=== PATIENT | female | born 1960 | race Two or more races ===

== ENCOUNTER 2020-01-25 16:22 | Emergency (ER) | payer MEDICAID ==
[~2020-01-25] VITALS: Ht 167.6 cm; Wt 63.5 kg
[2020-01-25 16:30] VITALS: BP 163/99
--- NOTE | 2020-01-25 17:00 | NUR ---
ED Nurse Note: Patient ambulated to ER c/o right eye irritation, at 11 in the morning. Patient reports wearing contact lense. Patient AAO x4, VSS at this time.
--- NOTE | 2020-01-25 17:45 | NUR ---
ED Nurse Note: Alex Lens irrigation of the right eye was performed by [place], patient tolerated procedue well.
[2020-01-25] MEDS ORDERED: Fluorescein Strips RIGHT EYE ONE (18:00)
[2020-01-25] MEDS ORDERED: Tetracaine 0.5% Opth 4ml Soln RIGHT EYE ONE (18:00)
--- NOTE | 2020-01-25 18:24 | Emergency Room Report ---
History of Present Illness General Chief Complaint: Eye Problems Source: Patient Present Illness HPI The patient states that earlier this morning she noted some burning and pain in her right eye. She states she was at work this a.m. when she noticed these symptoms. She states that she did remove her contact lenses. She states that since that time her eye has been burning and irritated and there has been yellow discharge. She has kept her eye closed for comfort. She denies eye injury or trauma. She denies deep eye pain or headache. She has no other complaints. Allergies: Coded Allergies: No Known Allergies (Unverified , 01/25/20) COVID-19 Screening Contact w/high risk pt: No Experienced COVID-19 symptoms?: No COVID-19 Testing performed SEO MANAGER: No Patient History Past Medical History: none, see triage record Social History: Denies: smoking, alcohol use, drug use Reviewed Nursing Documentation: PMH: Agreed; PSxH: Agreed Nursing Documentation-PMH Past Medical History: No Stated History Review of Systems All Other Systems: negative except mentioned in HPI Physical Exam Vital Signs Date Time Temp Pulse Resp B/P (MAP) Pulse Ox O2 Delivery O2 Flow Rate FiO2 01/25/20 16:24 97.9 78 16 163/99 (120) 100 Room Air Sp02 EP Interpretation: reviewed, normal General Appearance: no apparent distress, alert, GCS 15, non-toxic Head: normocephalic, atraumatic Eyes: right eye other - Fluorescin uptake in circular pattern over middle of visual field. 0.5x0.5 ENT: hearing grossly normal, normal pharynx, no angioedema, normal voice Neck: full range of motion, supple/symm/no masses Respiratory: chest non-tender, lungs clear, normal breath sounds, no respiratory distress, no retraction, no accessory muscle use, speaking full sentences Rectal: deferred Musculoskeletal: back normal, normal range of motion, gait/station normal, non- tender Neurologic: alert, motor strength/tone normal, oriented x3, sensory intact, responsive, speech normal Psychiatric: judgement/insight normal, memory normal, mood/affect normal, no suicidal/homicidal ideation Skin: no rash, normal color Medical Decision Making Diagnostic Impression: Primary Impression: Keratitis Additional Impressions: Acute bacterial conjunctivitis Corneal abrasion due to contact lens ER Course This patient has findings on exam concerning for a corneal abrasion with a bacterial conjunctivitis and keratitis. The patient's right eye was irrigated with a Alex lens and 500 cc of normal saline. The patient was given a list of the local optometry clinics and instructed to go to the optometry clinic immediately upon discharge or within the next 24 hours. The patient was educated not to use contact lenses at all until cleared by an bag filler machine operator or showroom manager. I will place the patient on Ciprodex. I impressed upon the patient the importance of very close follow-up with an recruitment specialist as she could lose vision in this eye. She indicated understanding and intention to do so. Last Vital Signs Date Time Temp Pulse Resp B/P (MAP) Pulse Ox O2 Delivery O2 Flow Rate FiO2 01/25/20 16:30 97.9 68 16 163/99 100 Room Air Status: improved Disposition: HOME, SELF-CARE Condition: Improved Referrals: NON PHYSICIAN (PCP) Patient Instructions: Bacterial Conjunctivitis, [id number] Kamille Herman DO Jan 25, 2020 18:24
[2020-01-25] MEDS ORDERED: VIGAMOX1 DROP RIGHT EYE (18:50)
[2020-01-25 18:55] VITALS: BP 163/99
--- NOTE | 2020-01-25 18:55 | NUR ---
ED Nurse Note: Pt cleared by health care Provider for discharge. DC instructions/prescription was given and explained to pt and verbalized understanding of teachings. All medical deviecs such as ID band removed. Pt is AAO x4, ambulatory and left with all personal belongings.
== END 2020-01-25 18:55 | disposition home or self-care (01) ==
LOC: EMR 17:14
DX: H16.9 Unspecified keratitis (principal); H10.31 Unspecified acute conjunctivitis, right eye; H18.821 Corneal disorder due to contact lens, right eye
CPT/HCPCS: 99283